=== PATIENT | male | born 1975 | race Hispanic/Latino ===

== ENCOUNTER 2021-06-30 18:34 | Emergency (ER) | payer BC, OTHER ==
[~2021-06-30] VITALS: Ht 177.8 cm; Wt 233.6 kg
[2021-06-30] MEDS ORDERED: HYDROCODONE/ACETAMINOPHEN 10/325 MG TAB PO ONE (20:00)
[2021-06-30] MEDS ORDERED: NAPR-1180 PO (20:40)
[2021-06-30 20:45] VITALS: BP 158/78
== END 2021-06-30 21:03 | disposition home or self-care (01) ==
LOC: EDH 18:34
DX: S86.112A Strain of other muscle(s) and tendon(s) of posterior muscle group at lower leg level, left leg, initial encounter (principal); I10 Essential (primary) hypertension; E78.00 Pure hypercholesterolemia, unspecified; Z79.1 Long term (current) use of non-steroidal anti-inflammatories (NSAID); E66.01 Morbid (severe) obesity due to excess calories; Z68.45 Body mass index [BMI] 70 or greater, adult; X58.XXXA Exposure to other specified factors, initial encounter; Y93.89 Activity, other specified; Y92.89 Other specified places as the place of occurrence of the external cause; Y99.8 Other external cause status
CPT/HCPCS: 73590